=== PATIENT | female | born 1955 | race African-American/Black ===

== ENCOUNTER 2025-02-25 12:46 | Emergency (ER) | payer MEDICARE, MEDICAID ==
[~2025-02-25] VITALS: Ht 162.6 cm; Wt 75.0 kg
[2025-02-25 12:51] VITALS: BP 138/80; PULSE 91; RESP 18; TEMP 98; O2SAT 98
== END 2025-02-25 13:10 | disposition left against medical advice (07) ==
LOC: ER 13:08
DX: S61.213A Laceration without foreign body of left middle finger without damage to nail, initial encounter (principal); X58.XXXA Exposure to other specified factors, initial encounter; Y93.89 Activity, other specified; Y92.89 Other specified places as the place of occurrence of the external cause; Y99.8 Other external cause status
CPT/HCPCS: 99281; 99283